=== PATIENT | female | born 1995 | race Caucasian/White ===

== ENCOUNTER 2017-01-16 04:35 | Outpatient (CLI) | payer OTHER ==
[~2017-01-16] VITALS: Ht 177.8 cm; Wt 88.0 kg
[2017-01-16 04:37] VITALS: BP 129/74
[2017-01-16] MEDS ORDERED: PRENTAB9 PO (04:49)
[2017-01-16 05:01] VITALS: BP 129/74
== END 2017-01-16 06:00 | disposition home or self-care (01) ==
LOC: M LDO 04:35
PROVIDERS: ATTEND Obstetrics & Gynecology
DX: O47.1 False labor at or after 37 completed weeks of gestation (principal); Z3A.40 40 weeks gestation of pregnancy

== ENCOUNTER 2017-01-18 13:25 | Inpatient (IN) | payer OTHER ==
[~2017-01-18] VITALS: Ht 177.8 cm; Wt 90.0 kg
[2017-01-18] VITALS (7 sets, daily range): BP systolic 106–130; BP diastolic 67–84
[~2017-01-18 13:25] MED LIST: PRENTAB9 PO
[2017-01-18] MEDS ORDERED: LR 1,000 ML IV SCH ×2 (14:40)
[2017-01-18] MEDS ORDERED: OXYTOCIN DRIP 30 UNITS in APPROPRIATE DILUENT 1 EA IV SCH ×2 (14:45→19:28)
[2017-01-18 15:05] LABS: MEAN CORPUSCULAR HEMOGLOBIN 26.5 pg (27.0-33.0); MEAN CORPUSCULAR HGB CONC 32.1 g/dl (32.0-36.5); MEAN CORPUSCULAR VOLUME 82.4 fl (80.0-96.0); RED CELL DISTRIBUTION WIDTH 14.3 % (11.5-14.5); WHITE BLOOD COUNT 9.8 K/mm3 (4.0-10.0)
[2017-01-18] MEDS ORDERED: FENTANYL 2MCG/ML ROPIVACAINE 0.2% IN 0.9% NACL 200ML IVBAG As Ordered ONE (17:44)
[2017-01-18] MEDS ORDERED: ONDANSETRON 4MG/2ML VIAL (J2405) IV PRN ×2 (18:15→19:30)
[2017-01-18] MEDS ORDERED: LACTATED RINGER'S 1000 ML IV PRN (18:15)
[2017-01-18] MEDS ORDERED: EPIDURAL/PCA KEYS XX PRN (18:15)
[2017-01-18] MEDS ORDERED: NALOXONE INJ 0.4 MG/1 ML VIAL (J2310) IV PRN (18:15)
[2017-01-18] MEDS ORDERED: FENTANYL/ROPIVACAINE/NACL BAG 200 ML EPIDURAL SCH (18:15)
[2017-01-18] MEDS ORDERED: REFRIGERATOR IV KEYS XX PRN (18:15)
[2017-01-18] MEDS ORDERED: diphenhydrAMINE INJ 50MG/ML VIAL (J1200) IV PRN (18:15)
[2017-01-18] MEDS ORDERED: ePHEDrine SULFATE 25 MG/5 ML(5MG/ML) SYRINGE IV PRN (18:15)
[2017-01-18] MEDS ORDERED: EPIDURAL COMMENT XX SCH (18:15)
[2017-01-18] MEDS ORDERED: RHOGAM 300 MCG (1500 IU) INJ (J2790) IM SCH (19:30)
[2017-01-18] MEDS ORDERED: PROMETHAZINE 25 MG TAB PO PRN (19:30)
[2017-01-18] MEDS ORDERED: DIBUCAINE 1% OINTMENT 30GM TOP PRN (19:30)
[2017-01-18] MEDS ORDERED: IBUPROFEN 800 MG TAB PO PRN (19:30)
[2017-01-18] MEDS ORDERED: MEASLES,MUMPS,RUBELLA VACCINE INJ (MMR-II) (90707) SC SCH (19:30)
[2017-01-18] MEDS ORDERED: METHYLERGONOVINE MALEATE 0.2 MG/ML VIAL (J2210) IM PRN (19:30)
[2017-01-18] MEDS: DOCUSATE SODIUM 100 MG CAP PO SCH (22:27)
[2017-01-19 05:43] VITALS: BP 121/56
[2017-01-19] MEDS: ACETAMINOPHEN 500 MG TAB PO PRN ×2 (06:37→14:09)
[2017-01-19] MEDS: PRENATAL VITAMIN TAB PO SCH (08:42)
[2017-01-19] MEDS: DOCUSATE SODIUM 100 MG CAP PO SCH ×2 (08:42→20:59)
[2017-01-19 18:32] VITALS: BP 105/65
[2017-01-20 06:51] VITALS: BP 120/72
[2017-01-20] MEDS: DOCUSATE SODIUM 100 MG CAP PO SCH (07:04)
--- NOTE | 2017-01-20 07:04 | IPNPDOC ---
Text Note Date of Service The patient was seen on 01/20/17. NOTE PPD2 prog note States feeling well, no complaints. No heavy VB. Pain controlled. Voiding, ambulatory. Bonding well and brst feeding. VSSAF CTAB RRR Ut at U-2, firm Ext no CCE a/p: Doing well. Likely d/c this afternoon/evening. Sessions VS,Eunice, I+O VS, Eunice I+O Vital Signs Date Time Temp Pulse Resp B/P (MAP) Pulse Ox O2 Delivery O2 Flow Rate FiO2 01/20/17 06:51 97.8 89 16 120/72 (88) I&O- Last 24 Hours up to 6 AM 01/20/17 05:59 Intake Total 420 ml Balance 420 ml SESSIONS,MADISYN Coe MD January 20, 2017 07:04
[2017-01-20] MEDS: PRENATAL VITAMIN TAB PO SCH (07:05)
[2017-01-20] MEDS: ACETAMINOPHEN 500 MG TAB PO PRN (07:05)
--- NOTE | 2017-01-20 07:06 | DS.PDOC ---
Discharge Summary General Date of Admission January 18, 2017 at 14:38 Date of Discharge [id number] Discharge Summary PROCEDURES PERFORMED DURING STAY: spontaneous vaginal delivery after successful induction for late term gestation ADMITTING DIAGNOSES: induction of labor DISCHARGE DIAGNOSES: 1. Healthy female infant HOSPITAL COURSE: Admitted for induction. Underwent an uncomplicated induction and delivery. See delivery note. DISCHARGE MEDICATIONS: Motrin, Dibucaine, Colace, Tylenol, Lanolin Physical exam: see note from this morning LABORATORY DATA: Please see below. ACTIVITY: as tolerated. Nothing in vagina for 6 weeks. No bathing for 2 weeks , shower only. DIET: regular DISPOSITION:stable TIME SPENT ON DISCHARGE: Greater than 15 minutes. Sessions Vital Signs/I&Os Vital Signs Date Time Temp Pulse Resp B/P (MAP) Pulse Ox O2 Delivery O2 Flow Rate FiO2 01/20/17 06:51 97.8 89 16 120/72 (88) I&O- Last 24 Hours up to 6 AM 01/20/17 05:59 Intake Total 420 ml Balance 420 ml Discharge Medications Scheduled Multivitamins/ ( 27-0.8 mg) 1 Tab Tab, 7 TAB PO DAILY, (Reported ) Allergies Coded Allergies: No Known Allergies (Unverified , 01/16/17) SESSIONS,MADISYN Coe MD January 20, 2017 07:06
[2017-01-20] MEDS ORDERED: DIBU1OI TOP (09:21)
[2017-01-20] MEDS ORDERED: COLA100C3 PO (09:21)
[2017-01-20] MEDS ORDERED: IBUP-1114 PO (09:21)
[2017-01-20] MEDS ORDERED: ACET50TA PO (09:21)
== END 2017-01-20 14:10 | disposition home or self-care (01) | DRG 775 ==
LOC: M LDO 13:25 → M LDI 14:38 → M OBS 21:32
PROVIDERS: ADMIT Obstetrics & Gynecology; ATTEND Obstetrics & Gynecology
PROC: 10E0XZZ Delivery of Products of Conception, External Approach (ICD-10-PCS; principal; 2017-01-18)
PROC: 0KQM0ZZ Repair Perineum Muscle, Open Approach (ICD-10-PCS; 2017-01-18)
PROC: 3E033VJ Introduction of Other Hormone into Peripheral Vein, Percutaneous Approach (ICD-10-PCS; 2017-01-18)
DX: O70.1 Second degree perineal laceration during delivery (principal); Z37.0 Single live birth; O48.0 Post-term pregnancy; Z3A.41 41 weeks gestation of pregnancy

== ENCOUNTER → 2018-05-30 | Outpatient (REF) | payer OTHER | LOC: M SFHCLERA 10:10 | DX: J03.90 Acute tonsillitis, unspecified (principal) ==